=== PATIENT | male | born 1985 | race American Indian/Alaskan Native ===

== ENCOUNTER 2016-11-21 10:47 | Emergency (ER) | payer SELFPAY ==
[2016-11-21 11:16] VITALS: BP 132/77; PULSE 56; RESP 16; TEMP 98.8; O2SAT 96
--- NOTE | 2016-11-21 11:35 | C.PDOC ---
History Of Present Illness 31 yr old male presents to the ER with complaints of right facial swelling gradually developing of the past 2 days. Patient reports pain is localized and worse with chewing. Denies fever, chills, throat pain, trismus, drooling, dysphagia, dyspnea, SOB, recent dental work, neck pain, denies any other active complaints. Ambulate to Ed for evaluation, not in any apparent distress.. Time Seen by Provider: 11/21/16 11:19 Chief Complaint (Nursing): Dental Pain History Per: Patient History/Exam Limitations: no limitations Onset/Duration Of Symptoms: Days (2) Past Medical History Reviewed: Historical Data, Nursing Documentation, Vital Signs Vital Signs: Last Vital Signs Temp 98.8 F 11/21/16 11:07 Pulse 56 L 11/21/16 11:07 Resp 16 11/21/16 11:07 BP 132/77 11/21/16 11:07 Pulse Ox 96 11/21/16 14:10 Family History: States: No Known Family Hx - Social History Hx Alcohol Use: Yes Hx Substance Use: No - Immunization History Hx Tetanus Toxoid Vaccination: Yes Hx Influenza Vaccination: No Hx Pneumococcal Vaccination: No Review Of Systems Except As Marked, All Systems Reviewed And Found Negative. Constitutional: Positive for: Other ((+) Right side facial swelling ). Negative for: Fever, Chills ENT: Negative for: Throat Swelling Gastrointestinal: Negative for: Vomiting Musculoskeletal: Negative for: Neck Pain Physical Exam - Physical Exam Appears: Non-toxic, No Acute Distress Skin: Warm, Dry, No Rash, Other ((+) Mild facial edema ) Eye(s): bilateral: PERRL Ear(s): Bilateral: Normal Nose: No Flaring, No Discharge Oral Mucosa: Moist, No Drooling, No Trismus Tongue: Normal Appearing, No Swelling, No Lesions Lips: Normal Appearing Teeth: Caries (Right lower 2nd molar), Tender To Palpation (Mild tenderness to percution to the right 2nd lower molar. ), Other ((+) Early tooth abscess to the right lower 2nd molar. No erythema. No fluctuance. ) Gingiva: Abscess (early abscess Right lower 2nd molar, (-) flactulance. Mild facoal edema without cellulitis Rigt lower face.) Throat: No Erythema, No Exudate, No Drooling Neck: Supple Chest: Symmetrical, No Tenderness Respiratory: No Decreased Breath Sounds, No Accessory Muscle Use, No Rales, No Rhonchi, No Stridor, No Wheezing Neurological/Psych: Oriented x3, Normal Speech, Normal Motor ED Course And Treatment O2 Sat by Pulse Oximetry: 96 (RA ) Pulse Ox Interpretation: Normal Progress Note: On re-eval, pt is Afebrile, hemodynamicaly stable. Non-toxic. Tolerate Po well in Ed. PulsOEx 97% RA. Neck: Supple, (-) meningeal sign. ENT: exam c/w Right lower tooth abcess, early. No flactulance, no facial cellulitis, no drooling, no trismus. Lungs: CTA B/L, BS equal B/L. neurologicaly intact. Parent advised on tx, and course of ds. ref. to f/u with Dentist in 1-2 days for re-eavl. retutn if any new changes. Medical Decision Making Medical Decision Making: PLAN: * Augmentin PO * Tramadol PO Disposition Counseled Patient/Family Regarding: Diagnosis, Need For Followup, Rx Given - Disposition Referrals: [facility] [Provider Group] [facility] [Provider Group] Disposition: HOME/ ROUTINE Disposition Time: 11:34 Condition: STABLE Additional Instructions: Take medication as prescribed Warm salty water tooth baths Encourage lemon juice Follow up with dentist in 2-3 days for re-evaluation. return to Ed if any worsening or new changes. Prescriptions: Amoxicillin/Clavulanate [Augmentin 875 MG-125 MG] 1 tab PO BID #14 tab traMADol [Ultram] 50 mg PO TID #7 tab Instructions: Dental Abscess (ED), Sialoadenitis (ED) - Clinical Impression Clinical Impression: Dental abscess - PA / CLINICAL NURSING PROFESSOR / Resident Statement MD/DO has reviewed & agrees with the documentation as recorded. - Scribe Statement The provider has reviewed the documentation as recorded by the Scribe Angely Tucker All medical record entries made by the Gloibjudy were at my direction and personally dictated by me. I have reviewed the chart and agree that the record accurately reflects my personal performance of the history, physical exam, medical decision making, and the department course for this patient. I have also personally directed, reviewed, and agree with the discharge instructions and disposition.
[2016-11-21] MEDS ORDERED: Amoxicillin-Clav 875-125 mg Tab PO STA (11:45)
[2016-11-21] MEDS ORDERED: Amoxicillin-Clav 875-125 mg Tab PO ONE (11:54)
== END 2016-11-21 12:25 | disposition home or self-care (01) ==
LOC: C.ER 10:47
DX: K04.7 Periapical abscess without sinus (principal)